=== PATIENT | male | born 1965 | race Caucasian/White ===

== ENCOUNTER 2016-08-02 15:33 | Inpatient (IN) | payer BC ==
[~2016-08-02] VITALS: Ht 182.9 cm; Wt 150.6 kg
[~2016-08-02 15:33] MED LIST: ASPI-110 PO; GLIP5TAB8 PO; HYDR-3580 PO; METF500 PO; METO50TA PO
[2016-08-20 06:28] VITALS: BP 159/89; PULSE 71; RESP 16; TEMP 97.9; O2SAT 99
[2016-08-20] MEDS ORDERED: POVIDONE IODINE 7.5% SCRUB 118 ML BOTTLE TOPICAL SCH (06:30)
[2016-08-20] MEDS ORDERED: SODIUM CHLORID 0.9% 500 ML IV PRN (06:30)
[2016-08-20] MEDS ORDERED: VANCOMYCIN 1000 MG/NS 250 ML (for <70 kg) IV SCH ×2 (06:30)
[2016-08-20] MEDS ORDERED: EXPAREL PERI-ARTICULAR INJECTION (TOTAL VOL. 60 ML) P-ARTICULR SCH ×2 (06:30)
[2016-08-20] MEDS ORDERED: METOPROLOL TARTRATE 25 MG TAB PO PRN (06:30)
[2016-08-20] MEDS ORDERED: POVIDONE IODINE 5% (ANTISEPSIS KIT) 4 APPLICATIONS EACH NARE PRN (06:30)
[2016-08-20] MEDS ORDERED: TRANEXAMIC ACID IV SCH ×2 (06:30→11:00)
[2016-08-20] MEDS ORDERED: LACTATED RINGER'S 1000 ML IV PRN (06:30)
[2016-08-20] MEDS ORDERED: SODIUM CHLORIDE 0.9% IV SCH ×2 (06:30→11:00)
[2016-08-20] MEDS ORDERED: CHLORHEXIDINE GLUCONATE 2 % 1 PACK (2 CLOTHS) TOPICAL PRN (06:30)
[2016-08-20] MEDS ORDERED: ceFAZolin 2 GM PREMIX 50 ML IV SCH (06:30)
[2016-08-20] MEDS ORDERED: INSULIN HUMAN REGULAR 1,000 UNITS/10 ML VIAL SQ PRN (06:30)
[2016-08-20] MEDS ORDERED: GENTAMICIN SULFATE 80 MG/2 ML VIAL ONE (06:38)
[2016-08-20] MEDS ORDERED: ACETAMINOPHEN 1000 MG/100 ML VIAL IV ONE (07:15)
[2016-08-20] MEDS ORDERED: FAMOTIDINE 20 MG/2 ML VIAL ONE (07:15)
[2016-08-20] MEDS ORDERED: fentaNYL CITRATE 250 MCG/5 ML AMP ONE ×2 (07:16→10:24)
[2016-08-20] MEDS ORDERED: DICLOFENAC SODIUM 37.5 MG/ML VIAL IV PUSH ONE (07:16)
[2016-08-20] MEDS ORDERED: MIDAZOLAM HCL 2 MG/2 ML VIAL ONE (07:16)
[2016-08-20] MEDS: LACTATED RINGER'S 1000 ML INJ 1,000 ML IV SCH ×2 (09:39→22:02)
[2016-08-20] MEDS ORDERED: MISCELLANEOUS NURSING INFORMATION XX PRN (09:45)
[2016-08-20] MEDS ORDERED: MISCELLANEOUS PHARMACY INFORMATION XX ONE (09:45)
[2016-08-20] MEDS ORDERED: MORPHINE SULFATE 30 MG/30 ML PCA IV SCH (09:45)
[2016-08-20] MEDS ORDERED: NALOXONE HCL 0.4 MG/ML AMP IV PRN (09:45)
[2016-08-20] MEDS ORDERED: ACETAMINOPHEN/HYDROcodone 325 MG/10 MG TAB PO PRN (09:45)
[2016-08-20] MEDS ORDERED: DEXTROSE 50% IN WATER 50 ML VIAL(D50) IV PRN (09:45)
[2016-08-20] MEDS ORDERED: SODIUM CHLORIDE 0.9% FLUSH 5 ML FLUSH IVF PRN (09:45)
[2016-08-20] MEDS ORDERED: GLUCAGON 1 MG/ML VIAL IM/SQ PRN (09:45)
[2016-08-20] MEDS ORDERED: MORPHINE SULFATE 8 MG/ML INJ IM PRN (09:45)
[2016-08-20] MEDS ORDERED: Post-op Orders (for Pharmacy) MISC XX ONE (09:45)
--- NOTE | 2016-08-20 09:49 | PD.OP ---
cc: Chay Gracia MD Operative Report Date of Surgery: Aug 20, 2016 Preoperative Diagnosis: Osteoarthritis right hip, severe Postoperative Diagnosis: Same Procedure: Right total hip replacement arthroplasty, anterior exposure Anesthesia: Gen. Surgeon: Chay Gracia Computer Information Science Professor(s): PATRICIO Melton Operation and Findings: EBL: 300 cc INDICATION: This patient presents with significant hip pain related to severe osteoarthritis right hip with periarticular osteophytes and lateral subluxation. Despite extensive conservative care this patient continues to be painful and now presents for surgical treatment. NOTE: Kaylin Melton PA-C was present for the entire surgical procedure as my first beater. In my medical opinion her skill and care was necessary for the proper management of this patient. COMPONENTS: COMPANY: [employer] CUP: [place], 58 mm, 100 series, gription surface LINER: Altrx 36, neutral STEM: Size 13, standard offset, [place], hydroxyapatite-coated HEAD: 36, +8.5, ceramic, 12/14 taper PROCEDURE: This patient was brought to the operating room and anesthetized in the supine position and positioned on the fracture table with both legs held extended. The right hip and leg was scrubbed with alcohol followed by Hibiclens followed by ChloraPrep and draped sterilely. Antibiotics were given within routine time window and a timeout was done. A 4 inch incision was made starting 2 cm distal and 2 cm lateral to the anterior superior iliac spine. The fascia fabián was opened longitudinally. The interval between the fascia fabián and the rectus was opened down to the capsule of the hip joint. Retractors were positioned allowing good visualization of the capsule. This was opened longitudinally and flaps were created. Stay sutures were utilized. Exposure was excellent. The neck was cut at the proper location using fluoroscopy as a guide. The head was removed. Deep retractors were positioned allowing good visualization of the acetabulum. Acetabulum was deepened down to the floor starting with a proper size reamer and reaming up to 57 mm. A trial was utilized. Fluoroscopy was used to check position and confirmed satisfactory alignment. The rim was reamed with a 58 mm reamer and the final cup was positioned in approximately 20 of anteversion and 40-45 of abduction. Position was satisfactory. A single hole eliminator was positioned followed by the final liner. The lifting hook was utilized. The leg was dropped to the floor, maximally externally rotated and brought across the midline. Retractors were positioned. A box osteotome was utilized followed by progressive broaching to the proper stem size. Trial reduction showed excellent alignment and fit. With 60 of external rotation the leg was dropped to the floor without evidence of anterior subluxation. The wound was irrigated. The final stem was inserted and was found to be very stable. The final reduction using the final head. Stability was as previously noted. Intraoperative x-rays were taken. The wound was irrigated copiously. Hemostasis was controlled. Local anesthesia was utilized. The capsule was repaired with #2 Tycron sutures. The fascia fabián was repaired with running 0 PDS on a loop. Subcutaneous tissue was approximated with 2-0 Vicryl and skin with running intradermal 3-0 Vicryl followed by Steri-Strips. A sterile dressing was applied. The patient was awakened and taken to the recovery room in satisfactory condition. FINDINGS: Severe osteoporosis of the right hip. The final solution was excellent. No complication was appreciated. Chay Gracia MD Aug 20, 2016 09:49
[2016-08-20] MEDS ORDERED: XARE10TA PO (09:53)
[2016-08-20] MEDS ORDERED: HYDR-3583 PO (09:53)
--- NOTE | 2016-08-20 09:57 | RADRPT ---
EXAM DATE/TIME: 08/20/2016 07:49 [facility] COMPARISON: No previous studies available for comparison. INDICATIONS : Post-op total right hip arthroplasty. MEDICAL HISTORY : None. SURGICAL HISTORY : None. ENCOUNTER: Initial ACUITY: 1 day PAIN SCORE: Non-responsive. LOCATION: Right Hip. FINDINGS: Multiple views of the right hip were obtained and demonstrate that the patient is status post right h ip arthroplasty. The acetabular and femoral components are intact and in normal alignment. There is o verlying artifact. CONCLUSION: Expected postoperative change status post right hip arthroplasty. Bertin Patel MD on August 20, 2016 at 9:54 Board Certified Radiologist. This report was verified electronically.
[2016-08-20] MEDS ORDERED: MORPHINE SULFATE 4 MG/ML INJ ONE (10:25)
[2016-08-20] MEDS ORDERED: *morphine SULFATE 8 MG/ML PERIprocedure ONLY ONE ×3 (10:42→11:03)
[2016-08-20] MEDS ORDERED: DO NOT ADM ANY ANTICOAGULANT DRUGS PRN (10:45)
[2016-08-20] MEDS ORDERED: INSULIN ASPART SUPPLEMENTAL SCALE ONE (11:04)
[2016-08-20] MEDS: INSULIN NovoLIN REGULAR SUPPLEMENTAL SCALE SQ SCH ×3 (11:10→22:02)
[2016-08-20] MEDS ORDERED: *ONDANSETRON 4 MG VIAL PERIprocedural Use ONLY ONE (11:34)
[2016-08-20] MEDS ORDERED: LACTATED RINGER'S 1000 ML INJ 1,000 ML IV ONE (12:00)
[2016-08-20] MEDS ORDERED: PROPOFOL 200 MG/20 ML AMP IV ONE (12:00)
[2016-08-20] MEDS ORDERED: PROCHLORPERAZINE INJ 10 MG/2 ML VIAL ONE (14:36)
[2016-08-20] MEDS ORDERED: PROCHLORPERAZINE INJ 10 MG/2 ML VIAL IV ONE (15:15)
[2016-08-20] MEDS: glipiZIDE 5 MG TAB PO SCH (16:00)
[2016-08-20 17:46] VITALS: BP 156/91; PULSE 86; RESP 15; TEMP 97.8; O2SAT 96
[2016-08-20] MEDS: ACETAMINOPHEN/HYDROcodone 325 MG/10 MG TAB PO PRN ×2 (18:09→23:54)
[2016-08-20] MEDS: metFORMIN HCL 500 MG TAB PO SCH (19:47)
[2016-08-20 19:51] VITALS: BP 125/84; PULSE 81; RESP 18; TEMP 97.1; O2SAT 98
[2016-08-20] MEDS: MAGNESIUM HYDROXIDE SUSP 30 ML CUP PO SCH (20:28)
[2016-08-20] MEDS: SENNOSIDES 8.6 MG TAB PO SCH (20:28)
[2016-08-20] MEDS: METOPROLOL TARTRATE 50 MG TAB PO SCH (20:28)
[2016-08-20] MEDS: SODIUM CHLORIDE 0.9% FLUSH 5 ML FLUSH IVF SCH (21:00)
[2016-08-20] MEDS: PCA - TOTAL MG MORPHINE DELIVERED PER SHIFT SCH (22:00)
[2016-08-21 00:10] VITALS: BP 134/60; PULSE 83; RESP 17; TEMP 99.5; O2SAT 94
[2016-08-21 04:03] VITALS: BP 141/73; PULSE 81; RESP 17; TEMP 99.9; O2SAT 94
[2016-08-21] MEDS: PCA - TOTAL MG MORPHINE DELIVERED PER SHIFT SCH (06:00)
[2016-08-21] MEDS: ACETAMINOPHEN/HYDROcodone 325 MG/10 MG TAB PO PRN ×4 (06:00→23:54)
[2016-08-21] MEDS: INSULIN NovoLIN REGULAR SUPPLEMENTAL SCALE SQ SCH ×4 (06:03→21:28)
[2016-08-21 07:09] LABS: HEMATOCRIT 33.1 % (39.0-51.0); REVIEW FLAG FINAL
[2016-08-21 08:00] VITALS: BP 142/77; PULSE 89; RESP 18; TEMP 99; O2SAT 93
[2016-08-21] MEDS: RIVAROXABAN 10 MG TAB PO SCH (08:33)
[2016-08-21] MEDS: METOPROLOL TARTRATE 50 MG TAB PO SCH ×2 (08:33→20:37)
[2016-08-21] MEDS: metFORMIN HCL 500 MG TAB PO SCH ×2 (08:33→18:05)
[2016-08-21] MEDS: glipiZIDE 5 MG TAB PO SCH ×2 (08:34→18:05)
[2016-08-21] MEDS: MAGNESIUM HYDROXIDE SUSP 30 ML CUP PO SCH ×2 (08:34→20:37)
[2016-08-21] MEDS: SODIUM CHLORIDE 0.9% FLUSH 5 ML FLUSH IVF SCH ×2 (08:35→20:37)
--- NOTE | 2016-08-21 10:15 | HHI.DCPOC ---
Discharge Care Plan Diagnosis: (1) Right hip pain (2) Osteoarthritis of right hip Your Health Problems Are: Incision/Drains Inflammation Swelling Fluctuating Blood Sugars Goals to Promote Your Health * To prevent worsening of your condition and complications * To maintain your health at the optimal level Directions to Meet Your Goals Take your medications as prescribed Follow your dietary instruction Follow activity as directed Keep your appointments as scheduled Take your immunizations and boosters as scheduled If your symptoms worsen call your PCP, if no PCP go to Urgent Care Center or Emergency Room Smoking is Dangerous to Your Health. Avoid second hand smoke Call the 24-hour hour crisis hotline for domestic abuse at Sravanthi Dc Aug 21, 2016 10:15
--- NOTE | 2016-08-21 10:15 | HHI.FF ---
Face to Face Verification Diagnosis: (1) Osteoarthritis of right hip (2) Right hip pain Physical Therapy Gait training, Safety evaluation Hip: Total hip, Protocol: Right, Progress to weight bearing Right LE Weight Bearing: WB as tolerated Additional Instructions PT 4-5 days/wk for 2 weeks. WBAT Right LE. Anterior NEFTALY protocol. Walker as needed. Nursing RN Days per Week: 5 x Week(s): 1 Dressing Changes: Do not change dressing Additional Instructions Vitals assessment, dressing assessment - do not change unless saturated or erythema. Daily glucose checks. Sliding scale for insulin (orders per PCP). Teach and assist for insulin use, diabetes teaching and instruction. I have seen patient Chris Larkin on 08/21/16. My clinical findings support the need for the requested home health care services because: Limited ability to care for self High risk of falls I certify that my clinical findings support that this patient is homebound because: Post-op weakness Unsteady gait/balance Sravanthi Dc Aug 21, 2016 10:15
--- NOTE | 2016-08-21 10:16 | HHI.DS ---
Discharge Summary Admission Date Aug 20, 2016 at 05:35 Discharge Date: Aug 23, 2016 Admitting Diagnosis see below Diagnosis: (1) Right hip pain Diagnosis: Principal (2) Osteoarthritis of right hip Diagnosis: Principal Procedures Right total hip arthroplasty, Direct anterior approach Brief History This is a 51 year old male patient with a long history of right hip pain for more than 8 years. He initially sought out treatment when he experience hip pain after a half marathon type run. He was given a cortisone injection. His pain was mild until it began increasing over the last 4 years. He was treated with physical therapy and medications. He would take [place] for his worst episodes. Imaging studies were repeated in 2014 and 2015 which showed severe osteoarthritis of the right hip premature for age. Further cortisone injections were discussed but were declined as he is a diabetic. When his function continued to decline despite frequent use of narcotics surgical treatment was discussed. Right total hip arthroplasty was recommended and he elected to move forward once medical clearance was obtained. He presents for the above. CBC/BMP: 08/21/16 0653 Significant Findings Laboratory Tests Test 08/21/16 06:53 Hemoglobin 11.6 GM/DL (13.0-17.0) Hematocrit 33.1 % (39.0-51.0) Hospital Course Surgical treatment was performed on the day of admission without complication. He recovered well in PACU and was transferred to the orthopaedic floor. Pain was controlled with IV and oral medications. DVT prophylaxis was initiated postoperative day 1. His blood glucose was checked routinely and insulin was administered as needed. He was compliant with physical therapy and all total hip precautions. After 3 days he was found to be stable and discharged home with home health care. At that time he was instructed to continue therapy, pursue a low carb, high fiber diet and to continue glucose checks outpatient. Pt Condition on Discharge: Stable Discharge Disposition: Disch w/ Home Health Serv Discharge Instructions Diet Instructions: Diabetic Diet, High Fiber Diet Activities You Can Perform: Weight Bearing as [place]lee Activities to Avoid: Strenuous Activity Additional Activity Instruc.: Anterior zia precautions New Medications: 3-in-1 Bedside Toilet (3-in-1 Bedside Toilet) 1 Mis Mis 1 EA .ROUTE DIRECTED #1 EA Walker with Front Wheels (Walker with Front Wheels) 1 Mis Mis 1 EA .ROUTE DIRECTED #1 Ref 0 EA Hydrocodone-Acetaminophen (Hydrocodone-Acetaminophen) 10-325 mg Tab 1 TAB PO Q4H PRN PAIN LESS THAN 5 ON SCALE #50 TAB Rivaroxaban (Xarelto) 10 Mg Tab 10 MG PO Q24H Prevent Blood Clot #25 TAB Continued Medications: Glipizide (Glipizide) 5 Mg Tab 10 MG PO BIDAC Take 30 minutes before a meal Blood Sugar Management #60 Ref 0 TAB Hydrocodone-Acetaminophen (Hydrocodone-Acetaminophen) 7.5-325 mg Tab 1 TAB PO Q4H PRN PAIN Ref 0 TAB Metformin (Glucophage) 500 Mg Tab 500 MG PO BIDPC With meals Blood Sugar Management #60 Ref 0 TAB Metoprolol Tartrate (Metoprolol Tartrate) 50 Mg Tab 50 MG PO BID #60 Ref 0 TAB Discontinued Medications: Aspirin DR (Aspirin 81) 81 Mg Tabdr 81 MG PO DAILY Ref 0 TAB Sravanthi Dc Aug 21, 2016 10:16
[2016-08-21] MEDS: LACTATED RINGER'S 1000 ML INJ 1,000 ML IV SCH ×2 (10:39→23:07)
[2016-08-21 12:00] VITALS: BP 149/76; PULSE 73; RESP 18; TEMP 98.9; O2SAT 97
--- NOTE | 2016-08-21 13:02 | PD.ORT.PN ---
Subjective Subjective Remarks Significant right hip pain. He states that it 'is more than he expected'. No other complaints. No nausea, no chest pain or shortness of breath. Currently on sliding scale for insulin. Questions about surgery. Objective Vitals Vital Signs Date Time Temp Pulse Resp B/P Pulse Ox O2 Delivery O2 Flow Rate FiO2 08/21/16 08:00 99.0 89 18 142/77 93 08/21/16 07:20 Room Air 08/21/16 06:00 18 08/21/16 04:03 99.9 81 17 141/73 94 08/21/16 00:10 99.5 83 17 134/60 94 08/20/16 22:00 18 08/20/16 20:48 21 08/20/16 19:51 97.1 81 18 125/84 98 08/20/16 17:46 97.8 86 15 156/91 96 08/20/16 16:00 98.1 76 16 150/81 98 Room Air I/O 08/20/16 08/20/16 08/20/16 08/21/16 08/21/16 08/21/16 07:00 15:00 23:00 07:00 15:00 23:00 Intake Total 900 ml 1175 ml 858 ml Output Total 300 ml 1000 ml Balance 600 ml 175 ml 858 ml Intake Oral 480 ml 480 ml IV Total 900 ml 695 ml TPN/PPN 378 ml Output Urine Total 1000 ml Estimated Blood Loss 300 ml # Voids 1 3 # Bowel Movements 0 0 Result Diagram: 08/21/16 0653 Procedures Right total hip arthroplasty, Direct anterior approach Objective Remarks Laying in bed NAD VSS RLE Dressing c/d/i, mild-moderate swelling, no erythema thigh and calf supple, neg homans +motor at, +sens, +nvi Assessment & Plan Ortho Post Op Day #: 1 Problem List: (1) Right hip pain (2) Osteoarthritis of right hip Assessment and Plan pod#1 s/p R NEFTALY, anterior D/C target protection specialist - change to po pain meds. Flexeril for spasm Xarelto 10mg qd Hold dressing changes unless saturated PT - WBAT RLE. Anterior neftaly precautions. D/C planning, HHC vs SNF. He is questioning going to snf b/c he is requiring more assistance than anticipated. DME written. Sravanthi Dc Aug 21, 2016 13:02
[2016-08-21] MEDS ORDERED: MISC-163 (13:03)
[2016-08-21] MEDS ORDERED: WALKER WHEELS/F1 MIS (13:04)
[2016-08-21] MEDS: CYCLOBENZAPRINE HCL 10 MG TAB PO PRN ×2 (13:22→23:54)
[2016-08-21 16:08] VITALS: BP 145/74; PULSE 82; RESP 19; TEMP 99.4; O2SAT 95
[2016-08-21 20:30] VITALS: BP 153/75; PULSE 95; RESP 17; TEMP 97.5; O2SAT 96
[2016-08-21] MEDS: SENNOSIDES 8.6 MG TAB PO SCH (20:37)
[2016-08-22 00:40] VITALS: BP 141/72; PULSE 82; RESP 17; TEMP 99; O2SAT 96
[2016-08-22] MEDS: ACETAMINOPHEN/HYDROcodone 325 MG/10 MG TAB PO PRN ×4 (06:04→23:47)
[2016-08-22] MEDS: INSULIN NovoLIN REGULAR SUPPLEMENTAL SCALE SQ SCH ×4 (06:04→20:54)
[2016-08-22 08:00] VITALS: BP 145/67; PULSE 101; RESP 19; TEMP 96.8; O2SAT 94
[2016-08-22] MEDS: RIVAROXABAN 10 MG TAB PO SCH (08:38)
[2016-08-22] MEDS: MAGNESIUM HYDROXIDE SUSP 30 ML CUP PO SCH ×2 (08:38→20:53)
[2016-08-22] MEDS: metFORMIN HCL 500 MG TAB PO SCH ×2 (08:38→17:52)
[2016-08-22] MEDS: METOPROLOL TARTRATE 50 MG TAB PO SCH ×2 (08:39→20:53)
[2016-08-22] MEDS: glipiZIDE 5 MG TAB PO SCH ×2 (08:39→17:52)
[2016-08-22] MEDS: SODIUM CHLORIDE 0.9% FLUSH 5 ML FLUSH IVF SCH ×2 (09:00→20:57)
--- NOTE | 2016-08-22 09:33 | PD.ORT.PN ---
Subjective Subjective Remarks He continues to have right hip pain. The flexeril made him tired but allowed him to get more rest last night. He is concerned about discharging home versus going to rehab because he feels he will be a burden to his and is concerned about his blood sugars and using insulin. No complaints otherwise. Appetite good. Urinating well. No BM but passing gas. No other complaints, no CP or SOB. Objective Vitals Vital Signs Date Time Temp Pulse Resp B/P Pulse Ox O2 Delivery O2 Flow Rate FiO2 08/22/16 06:57 Room Air 08/22/16 00:40 99.0 82 17 141/72 96 08/21/16 21:40 96 Room Air 08/21/16 20:30 97.5 95 17 153/75 96 08/21/16 16:08 99.4 82 19 145/74 95 08/21/16 12:00 98.9 73 18 149/76 97 I/O 08/21/16 08/21/16 08/21/16 08/22/16 08/22/16 08/22/16 07:00 15:00 23:00 07:00 15:00 23:00 Intake Total 858 ml 960 ml 240 ml 120 ml Balance 858 ml 960 ml 240 ml 120 ml Intake Oral 480 ml 960 ml 240 ml 120 ml TPN/PPN 378 ml # Voids 3 3 0 3 # Bowel Movements 0 0 0 0 Result Diagram: 08/21/16 0653 Procedures Right total hip arthroplasty, Direct anterior approach Objective Remarks Laying in bed, at bedside NAD VSS RLE Dressing c/d/i, mild swelling, no erythema thigh and calf supple, neg homans +motor at, +sens, +nvi Assessment & Plan Ortho Post Op Day #: 2 Problem List: (1) Right hip pain (2) Osteoarthritis of right hip Assessment and Plan pod#2 s/p R NEFTALY, anterior Ortho stable. PO pain meds as needed. Will continue muscle relaxer as needed but do not need to write home Rx. Xarelto 10mg qd Hold dressing changes unless saturated PT - WBAT RLE. Anterior neftaly precautions. D/C planning - he has required minimal assistance by PT. Likely SNF is not necessary. We will see is home RN can assist with glucose checks and insulin use. Likely will d/c home w hhc tomorrow. DME written. F2F written. Sravanthi Dc Aug 22, 2016 09:33
[2016-08-22] MEDS: LACTATED RINGER'S 1000 ML INJ 1,000 ML IV SCH (11:39)
[2016-08-22 12:00] VITALS: BP 142/76; PULSE 88; RESP 18; TEMP 99.5; O2SAT 95
[2016-08-22 16:00] VITALS: BP 143/73; PULSE 84; RESP 18; TEMP 98.6; O2SAT 97
[2016-08-22 20:30] VITALS: BP 159/88; PULSE 105; RESP 17; TEMP 96.9; O2SAT 94
[2016-08-22] MEDS: SENNOSIDES 8.6 MG TAB PO SCH (20:53)
[2016-08-22] MEDS: CYCLOBENZAPRINE HCL 10 MG TAB PO PRN (23:47)
[2016-08-23 00:30] VITALS: BP 159/79; PULSE 83; RESP 17; TEMP 99.2; O2SAT 96
[2016-08-23 04:35] VITALS: BP 126/64; PULSE 79; RESP 17; TEMP 98.7; O2SAT 96
[2016-08-23] MEDS: ACETAMINOPHEN/HYDROcodone 325 MG/10 MG TAB PO PRN ×3 (06:11→17:49)
[2016-08-23] MEDS ORDERED: CYCL1TAB29 PO (07:49)
[2016-08-23 08:00] VITALS: BP 155/88; PULSE 94; RESP 18; TEMP 98.7; O2SAT 94
[2016-08-23] MEDS: METOPROLOL TARTRATE 50 MG TAB PO SCH (08:34)
[2016-08-23] MEDS: glipiZIDE 5 MG TAB PO SCH ×2 (08:34→16:00)
[2016-08-23] MEDS: RIVAROXABAN 10 MG TAB PO SCH (08:35)
[2016-08-23] MEDS: metFORMIN HCL 500 MG TAB PO SCH (08:35)
[2016-08-23] MEDS: INSULIN NovoLIN REGULAR SUPPLEMENTAL SCALE SQ SCH ×3 (08:38→17:06)
[2016-08-23] MEDS: MAGNESIUM HYDROXIDE SUSP 30 ML CUP PO SCH (09:00)
[2016-08-23] MEDS: SODIUM CHLORIDE 0.9% FLUSH 5 ML FLUSH IVF SCH (09:00)
[2016-08-23 12:00] VITALS: BP 149/79; PULSE 79; RESP 18; TEMP 99.7; O2SAT 98
[2016-08-23] MEDS ORDERED: ONDANSETRON HCL 4 MG/2 ML VIAL IV PUSH ONE (12:00)
[2016-08-23] MEDS: CYCLOBENZAPRINE HCL 10 MG TAB PO PRN (12:38)
[2016-08-23] MEDS: LACTATED RINGER'S 1000 ML INJ 1,000 ML IV SCH (12:39)
--- NOTE | 2016-08-23 15:59 | PD.ORT.PN ---
Subjective Subjective Remarks Pt was seen at 7:30am today. Right hip slowly improving. Mobility much improved. Flexeril helpful for occasional spasms. Questions about insulin and outpatient blood sugar control. No complaints otherwise. Appetite good. Urinating well. No other complaints, no CP or SOB. Objective Vitals Vital Signs Date Time Temp Pulse Resp B/P Pulse Ox O2 Delivery O2 Flow Rate FiO2 08/23/16 12:00 99.7 79 18 149/79 98 08/23/16 08:00 98.7 94 18 155/88 94 08/23/16 07:30 Room Air 08/23/16 04:35 98.7 79 17 126/64 96 08/23/16 00:30 99.2 83 17 159/79 96 08/22/16 20:30 96.9 105 17 159/88 94 08/22/16 16:00 98.6 84 18 143/73 97 I/O 08/22/16 08/22/16 08/22/16 08/23/16 08/23/16 08/23/16 07:00 15:00 23:00 07:00 15:00 23:00 Intake Total 120 ml 960 ml 240 ml Balance 120 ml 960 ml 240 ml Intake Oral 120 ml 960 ml 240 ml # Voids 3 5 3 # Bowel Movements 0 0 0 Result Diagram: 08/21/16 0653 Procedures Right total hip arthroplasty, Direct anterior approach Objective Remarks Transferring from walker to chair, RN at bedside NAD VSS RLE Dressing c/d/i, mild swelling, no erythema thigh and calf supple, neg homans +motor at, +sens, +nvi Assessment & Plan Ortho Post Op Day #: 3 Problem List: (1) Right hip pain (2) Osteoarthritis of right hip Assessment and Plan pod#3 s/p R NEFTALY, anterior Ortho stable. PO pain meds as needed. Will write outpatient flexeril. Xarelto 10mg qd Hold dressing changes unless saturated PT - WBAT RLE. Anterior neftaly precautions. We had a lengthy discussion in regards to outpatient insulin use. Normally we do not write it for outpatient use unless PCP directs care. He still has random glucose measurements in the 200s but this was the case preop. I encouraged him to contact his PCP at the [place]. He has a glucometer to check his sugars daily. Ok to d/c home w hhc later today after PT. F/U in 2 weeks as scheduled. DME written. F2F written. Sravanthi Dc Aug 23, 2016 15:59
[2016-08-23 16:00] VITALS: BP 152/78; PULSE 84; RESP 18; TEMP 96.9; O2SAT 98
== END 2016-08-23 18:18 | disposition home health service (06) | DRG 470 ==
LOC: HSDI 08-20 05:35 → N06A 08-20 17:39
PROVIDERS: ADMIT Orthopaedic Surgery Orthopaedic Surgery of the Spine; ATTEND Orthopaedic Surgery Orthopaedic Surgery of the Spine
PROC: 0SR90JA Replacement of Right Hip Joint with Synthetic Substitute, Uncemented, Open Approach (ICD-10-PCS; principal; 2016-08-20 07:19)
DX: M16.11 Unilateral primary osteoarthritis, right hip (principal); M81.0 Age-related osteoporosis without current pathological fracture
CPT/HCPCS: 73502; 76000; 82948; 85014; 85018; 86850; 86900; 86901; 86920; 94150; C1776; C9290; J0131; J0690; J0780; J1130; J1580; J1815; J2250; J2270; J2405; J3010; J3370; J7050; J7120